=== PATIENT | male | born 1955 | race Caucasian/White ===

== ENCOUNTER 2016-08-15 13:26 | Inpatient (IN) | payer OTHER ==
--- NOTE | ~2016-08-15 | DS ---
Discharge Summary [facility] [address] [facility] [place]. [address] NAME: JOHN MOROCHO JR : 57 STATUS : DIS IN PAT#: [id number] AGE: 61 ADM/REG DATE : 08/15/16 MR#: [id number] REPORT SERV DATE: 08/18/16 DICTATED BY: SAMIR APARICIO DATE: 08/17/16 REPORT STATUS : Draft TRANSCRIBED BY: MODL DATE: 08/17/16 ADMISSION DATE: 08/15/2016 DISCHARGE DATE: 08/17/2016 REASON FOR ADMISSION: Partial small bowel obstruction. HPI: Please refer to my history and physical dated 08/15 for complete details regarding the patient's admission. The patient was admitted directly from [facility] for management and evaluation of an acute partial small bowel obstruction. HOSPITAL COURSE: The patient had an uncomplicated hospital course. The patient initially presented with some nausea, vomiting, abdominal pain to [facility]. They did a chest x-ray, which was concerning for dilated small loops of bowel for possible obstruction. The patient was accepted by myself as a direct admission. We did a CT scan of his abdomen and pelvis with contrast which showed status post colectomy with right lower quadrant ileostomy. There was evidence of a previous small-bowel surgery with a patent [id number] small bowel anastomosis in the right upper quadrant. There are mildly dilated small loops throughout the abdomen with mild narrowing of the caliber of the distal ilium just proximal to the ileostomy site. The patient does have a known stricture about 7 cm proximal to the stoma based on a colonoscopy in February [address] De Leon. The patient had an NG tube placed to low intermittent suction. He was feeling much better after the NG tube was placed. We started him on a clear liquid diet. He was tolerating it without any nausea or vomiting. His NG tube had been pulled on August 16, 2016. He has now been tolerating a regular diet without any nausea, vomiting, or abdominal pain. His ostomy is now producing the typical output. We did a KUB on the day of discharge, which showed possible dilated small bowel loops still present; however, the patient is feeling back to his baseline and is requesting to go home. PHYSICAL EXAMINATION: On physical exam, the patient has bowel sounds without any abdominal pain and his ostomy contains grits which is what he ate this morning. He feels back to his baseline and he is requesting to go home. He will be discharged home in a stable condition. DISCHARGE DIAGNOSES: 1. Partial small bowel obstruction, now likely resolved secondary to probable stricture. 2. Leukocytosis, now resolved. 3. Dehydration, now resolved. 4. Hypertension. 5. Hyperlipidemia. 6. History of Crohn's status post resection. PROCEDURES: Include CT scan of the abdomen and pelvis with IV and p.o. contrast. DISCHARGE MEDICATIONS: Include: 1. Atenolol 25 mg daily. 2. Tricor 48 mg at bedtime. Discharge Summary [place] [id number] [place]. [address] NAME: JOHN MOROCHO : 57 STATUS : DIS IN PAT#: [id number] AGE: 61 ADM/REG DATE : 08/15/16 MR#: [id number] REPORT SERV DATE: 08/18/16 DICTATED BY: SAMIR APARICIO DATE: 08/17/16 REPORT STATUS : Draft TRANSCRIBED BY: YANDEL DATE: 08/17/16 3. Niacin 500 mg at bedtime. 4. Prevacid 30 mg daily. 5. Vitamin B 1000 mcg every 30 days. 6. Fish oil 1000 mg three times a day. 7. Cinnamon bark. Patient will follow up with Dr. De Leon in a week. This is Dr. Samir Aparicio spending over 30 minutes discharge planning and coordination of care on Mr. Morocho. ELIDA/YANDEL Samir Aparicio MD / [id number] CC: MD Emili Leonard MD
--- NOTE | ~2016-08-15 | HP ---
History And Physical [place] [id number] [facility] [place]. [address] NAME: JOHN MOROCHO JR : 57 STATUS : ADM IN [facility]#: [id number] AGE: 61 ADM/REG DATE : 08/15/16 MR#: [id number] REPORT SERV DATE: 08/15/16 DICTATED BY: SAMIR APARICIO DATE: 08/15/16 REPORT STATUS : Draft TRANSCRIBED BY: MODL DATE: 08/15/16 DATE OF ADMISSION: 08/15/2016 REASON FOR ADMISSION: Direct admission from [facility] for concern for a partial small bowel obstruction. CHIEF COMPLAINT: "I was having some abdominal pain, nausea, and vomiting this morning." HISTORY OF PRESENT ILLNESS: 61-year-old, white male with a history of longstanding Crohn disease diagnosed at the age of 13 with a resultant colectomy and ileostomy at the age of 23, followed closely by Dr. De Leon with multiple surveillance scopes. The patient states that he was in his normal state of health up until last night where he started having some crampy abdominal pain in the epigastric area and resultant nausea and vomiting. Noted some very thick yellow output from his ostomy. He presented to [facility] where they did an x-ray of his abdomen which was concerning for a bowel obstruction and given that Dr. De Leon goes to [facility], the patient had requested to be transferred here for further evaluation. At [facility], he had placed an NG tube, done an x-ray and given him approximately 2 L of IV fluids. He is currently feeling better. Has not had any nausea or vomiting, but does have an NG tube placed. Since he has left the ER, he has noted some output from his ostomy which is new as he did not have any significant output since yesterday. He cannot recall all the details, but follows up very closely with Dr. De Leon. He states that he does have a known stricture and according to a colonoscopy report in 2015, he has a stricture in the ileum 7 cm proximal to the stoma. REVIEW OF SYSTEMS: No fever, but positive for chills. Nausea and vomiting now resolving. No chest pain. No shortness of breath. Review of systems is as per HPI. Otherwise, 10-point system were reviewed and are negative. PAST MEDICAL HISTORY: Hypertension, hyperlipidemia, reflux, Crohn disease with a history of ileostomy bleeding, Crohn enteritis. SURGICAL HISTORY: He had a total colectomy and with partial removal of his small bowel many years ago. SOCIAL HISTORY: He denies any tobacco, alcohol, IV drug use. He lives alone. 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 FAMILY HISTORY: Includes irritable bowel syndrome. ALLERGIES: NO KNOWN DRUG ALLERGIES. MEDICATIONS: Reviewed. PHYSICAL EXAMINATION: VITAL SIGNS: Blood pressure is 132/83, temperature is 97.4, pulse 92. History And Physical [address] [address] NAME: JOHN MOROCHO JR : 57 STATUS : ADM IN [facility]#: [id number] AGE: 61 ADM/REG DATE : 08/15/16 MR#: [id number] REPORT SERV DATE: 08/15/16 DICTATED BY: SAMIR APARICIO DATE: 08/15/16 REPORT STATUS : Draft TRANSCRIBED BY: YANDEL DATE: 08/15/16 GENERAL: The patient is a very pleasant, in no acute distress with current NG tube to gravity. HEENT: Normocephalic, atraumatic head. Extraocular muscles intact. Oropharynx clear. NECK: Supple. No JVD. CARDIAC: Regular rhythm. No murmurs, rubs, or gallops. PULMONARY: Clear to auscultation bilaterally. ABDOMEN: Soft, nondistended, very mild tenderness to palpation in the left lower quadrant. There is an ostomy with some output on the right side. There is a well-healed midline scar from previous surgery. NEUROLOGIC: No focal deficits. SKIN: Warm and dry. PSYCHIATRIC: The patient is cooperative. Mood is appropriate. LABS: From outside [place] [address], hemoglobin of 19, platelet count of 228. Creatinine 1.6. Glucose 217. Troponin is negative. IMPRESSION: 1. Partial small bowel obstruction. 2. Leukocytosis. 3. Polycythemia secondary to dehydration. 4. Crohn's, status post resection. 5. Hypertension. 6. Hyperlipidemia. PLAN: Continue with NG tube to lower intermittent suction. We will obtain a CT scan of his abdomen and pelvis with p.o. and IV contrast to evaluate small bowel obstruction versus strictures. Continue IV fluids. We will try to obtain records from Dr. De Leon' office and if surgical intervention is warranted, we will contact Dr. Lopez. ELIDA/YANDEL Samir Aparicio MD / [id number] CC: MD Virginia Leonard III, M.D.
[~2016-08-15 13:26] MED LIST: ACET500CAP PO; ALOE VERA500 MG OR; ALOE VERA500 MG PO; ATEN25 PO; B121000P IM; CALTRA600D PO; CINNAMIN PO; FISH-EPA1000 MG PO; HUMIRA PEN SC; MEGA MULTI OR; MERCAPTOPUR50 MG OR; MULTIVIT/MIN PO; MULTIVITAMI1 PO; NIACOR500 MG PO; P20 PO; PREV30 PO; TRICOR48 PO
[2016-08-15] MEDS ORDERED: TRICOR48 PO (16:20)
[2016-08-15] MEDS ORDERED: NIACIN 500 PO (16:20)
[2016-08-15] MEDS ORDERED: ATEN25 PO (16:20)
[2016-08-15] MEDS ORDERED: PREV30 PO (16:20)
[2016-08-15] MEDS ORDERED: CINNAMONPO PO (16:21)
[2016-08-15] MEDS ORDERED: B121000P IM (16:21)
[2016-08-15] MEDS ORDERED: FISH-EPA1000 MG PO (16:21)
[2016-08-15 17:26] LABS: BASOPHILS 0.1 %; BASOPHILS ABSOLUTE 0.01 10/3/uL (0.0-0.16); EOSINOPHILS 0.1 %; EOSINOPHILS ABSOLUTE 0.01 10/3/uL (0.0-0.53); IMMATURE GRANULOCYTES 0.2 %; IMMATURE GRANULOCYTES ABSOLUTE 0.02 10/3/uL (0.0-0.11); LYMPHOCYTES 5.6 %; LYMPHOCYTES ABSOLUTE 0.45 10/3/uL (0.67-4.30); MEAN CORPUS HGB CONC 36.5 g/dL (32.0-36.0); MEAN CORPUSCULAR HEMOGLOB 33.1 pg (26.0-34.0); MEAN CORPUSCULAR VOLUME 90.5 fL (80-100); MONOCYTES 10.7 %; MONOCYTES ABSOLUTE 0.86 10/3/uL (0.21-1.20); NEUTROPHILS 83.3 %; PLATELET COUNT 196 10/3/uL (150-400)
[2016-08-15 17:29] LABS: HEMATOCRIT 49.8 % (40.0-51.0); HEMOGLOBIN 18.2 g/dL (13.6-17.8); MANUAL DIFF NO %; WHITE BLOOD CELLS 8.1 10/3/uL (4.5-10.5)
[2016-08-15 17:36] LABS: PROTIME (NOT ORD) 13.4 SEC (12.0-14.5)
[2016-08-15 17:37] LABS: PARTIAL THROMBO TIME 30.2 SEC (22.5-37.2)
[2016-08-15 17:57] LABS: A/G RATIO 1.1 (0.7-1.9); ALBUMIN 3.5 G/DL (3.5-5.0); ALKALINE PHOSPHATASE 62 U/L (45-117); CALCIUM, SERUM 9.3 MG/DL (8.5-10.4); CHLORIDE, SERUM 109 MMOL/L (96-112); CO2 (CARBON DIOXIDE) 23 MMOL/L (24-34); CREATININE 1.13 MG/DL (0.70-1.30); GFR AFRICAN AMERICAN 81 ML/MIN (>=60); GFR NON AFRICAN AMERICAN 70 ML/MIN (>=60); GLOBULIN 3.2 G/DL (2.5-4.1); GLUCOSE, SERUM 134 MG/DL (60-99); PHOSPHORUS, SERUM 3.2 MG/DL (2.5-4.5); POTASSIUM, SERUM 3.8 MMOL/L (3.5-5.3); SGOT(AST) 20 U/L (5-40); SGPT(ALT) 25 U/L (5-65); SODIUM, SERUM 142 MMOL/L (135-148); TOTAL PROTEIN 6.7 G/DL (6.0-8.5)
[2016-08-15 17:58] LABS: BUN (BLOOD UREA NITROGEN) 19 MG/DL (6-23)
[2016-08-16 06:24] LABS: BASOPHILS 0.4 %; BASOPHILS ABSOLUTE 0.02 10/3/uL (0.0-0.16); EOSINOPHILS 0.7 %; EOSINOPHILS ABSOLUTE 0.04 10/3/uL (0.0-0.53); HEMATOCRIT 48.7 % (40.0-51.0); HEMOGLOBIN 16.9 g/dL (13.6-17.8); IMMATURE GRANULOCYTES 0.2 %; IMMATURE GRANULOCYTES ABSOLUTE 0.01 10/3/uL (0.0-0.11); LYMPHOCYTES 16.4 %; LYMPHOCYTES ABSOLUTE 0.92 10/3/uL (0.67-4.30); MEAN CORPUS HGB CONC 34.7 g/dL (32.0-36.0); MEAN CORPUSCULAR HEMOGLOB 32.3 pg (26.0-34.0); MEAN CORPUSCULAR VOLUME 92.9 fL (80-100); MEAN PLATELET VOLUME 10.3 fL (9.2-13.0); MONOCYTES 15.7 %; MONOCYTES ABSOLUTE 0.88 10/3/uL (0.21-1.20); NEUTROPHILS 66.6 %; NEUTROPHILS ABSOLUTE 3.73 10/3/uL (2.02-8.40); PLATELET COUNT 195 10/3/uL (150-400); RED CELL COUNT 5.24 10/6/uL (4.7-6.1); WHITE BLOOD CELLS 5.6 10/3/uL (4.5-10.5)
[2016-08-16 06:25] LABS: MANUAL DIFF NO %
[2016-08-16 06:32] LABS: BUN (BLOOD UREA NITROGEN) 21 MG/DL (6-23); CALCIUM, SERUM 9.1 MG/DL (8.5-10.4); CHLORIDE, SERUM 110 MMOL/L (96-112); CO2 (CARBON DIOXIDE) 25 MMOL/L (24-34); GFR AFRICAN AMERICAN 63 ML/MIN (>=60); GFR NON AFRICAN AMERICAN 54 ML/MIN (>=60); GLUCOSE, SERUM 122 MG/DL (60-99); PHOSPHORUS, SERUM 3.1 MG/DL (2.5-4.5); SODIUM, SERUM 143 MMOL/L (135-148)
[2016-08-17 05:11] LABS: BASOPHILS 0.3 %; BASOPHILS ABSOLUTE 0.02 10/3/uL (0.0-0.16); EOSINOPHILS 1.4 %; EOSINOPHILS ABSOLUTE 0.08 10/3/uL (0.0-0.53); IMMATURE GRANULOCYTES 0.2 %; IMMATURE GRANULOCYTES ABSOLUTE 0.01 10/3/uL (0.0-0.11); LYMPHOCYTES 19.8 %; LYMPHOCYTES ABSOLUTE 1.15 10/3/uL (0.67-4.30); MEAN CORPUS HGB CONC 34.5 g/dL (32.0-36.0); MEAN CORPUSCULAR HEMOGLOB 32.1 pg (26.0-34.0); MEAN CORPUSCULAR VOLUME 93.1 fL (80-100); MEAN PLATELET VOLUME 9.9 fL (9.2-13.0); MONOCYTES 16.4 %; MONOCYTES ABSOLUTE 0.95 10/3/uL (0.21-1.20); NEUTROPHILS 61.9 %; NEUTROPHILS ABSOLUTE 3.59 10/3/uL (2.02-8.40); PLATELET COUNT 146 10/3/uL (150-400); RBC DISTRIBUTION WIDTH 13.4 % (12.0-16.0); RED CELL COUNT 4.67 10/6/uL (4.7-6.1); WHITE BLOOD CELLS 5.8 10/3/uL (4.5-10.5)
[2016-08-17 05:12] LABS: HEMATOCRIT 43.5 % (40.0-51.0); MANUAL DIFF NO %
[2016-08-17 05:23] LABS: CALCIUM, SERUM 8.6 MG/DL (8.5-10.4); CHLORIDE, SERUM 112 MMOL/L (96-112); CO2 (CARBON DIOXIDE) 22 MMOL/L (24-34); CREATININE 1.07 MG/DL (0.70-1.30); GFR AFRICAN AMERICAN 87 ML/MIN (>=60); GFR NON AFRICAN AMERICAN 75 ML/MIN (>=60); GLUCOSE, SERUM 104 MG/DL (60-99); POTASSIUM, SERUM 3.7 MMOL/L (3.5-5.3); SODIUM, SERUM 144 MMOL/L (135-148)
[2016-08-17 05:25] LABS: BUN (BLOOD UREA NITROGEN) 17 MG/DL (6-23)
[2016-09-18] MEDS ORDERED: MULTIPLE VIT PO (12:59)
== END 2016-08-17 17:35 | disposition home or self-care (01) | DRG 389 ==
LOC: 5SO 13:26
PROVIDERS: Internal Medicine
DX: K56.69 Other intestinal obstruction (principal); K50.80 Crohn's disease of both small and large intestine without complications; I10 Essential (primary) hypertension; E78.5 Hyperlipidemia, unspecified; K21.9 Gastro-esophageal reflux disease without esophagitis; Z93.2 Ileostomy status; E86.0 Dehydration; Z88.0 Allergy status to penicillin
CPT/HCPCS: 74000; 74177; 80048; 80053; 83605; 83735; 84100; 85025; 85610; 85730; A9270-GY; G0378; Q9967

== ENCOUNTER 2016-10-06 22:31 | Inpatient (IN) | payer BC ==
--- NOTE | ~2016-10-06 | CN ---
Consultation Report [facility] [address] [place]. [address] NAME: JOHN MOROCHO JR : 57 STATUS : ADM IN [facility]#: [id number] AGE: 61 ADM/REG DATE : 10/06/16 MR#: [id number] REPORT SERV DATE: 10/09/16 DICTATED BY: RANGEL MOFFETT DATE: 10/09/16 REPORT STATUS : Draft TRANSCRIBED BY: MODL DATE: 10/09/16 ELECTROPHYSIOLOGY CONSULTATION DATE OF CONSULTATION: 10/09/2016 INDICATION: Complete AV block. HISTORY OF PRESENT ILLNESS: John Morocho is a 61-year-old man, who was transferred from [facility] with AV block and significant dizziness, this occurred on 10/06. The patient had been at work, felt lightheaded and dizzy while walking to the car, went to the emergency room, found to be significantly bradycardic with heart block, and was transferred for urgent temporary pacemaker placement, which was done by Dr. Gimenez on the evening of 10/06. The patient did not have meli syncope, but fairly dramatic presyncope. No complaints of chest pain. No orthopnea, PND, or lower extremity edema. PAST MEDICAL HISTORY: Crohn disease and hypertension. HOME MEDICATIONS: Fenofibrate, B12, atenolol. He has been off atenolol for 48 hours now. In spite OF that, still is pacer dependent with the temporary pacemaker. SOCIAL HISTORY: No alcohol and no tobacco. FAMILY HISTORY: Reviewed and noncontributory. REVIEW OF SYSTEMS: As per the HPI. Otherwise, all review of systems negative. ALLERGIES: REPORTED TO BE AMPICILLIN, WHICH CAUSES SORES IN THE PATIENT'S MOUTH. PHYSICAL EXAMINATION: VITAL SIGNS: With blood pressure of 124/64; pulse 50 with ventricular paced and complete AV block; temperature 98.1; the patient is afebrile. GENERAL: Appears stated age, no distress. EYES: Sclerae anicteric. No arcus senilis. MOUTH: Oral mucosa moist. Lips acyanotic. NECK: Jugular venous pressure normal. No carotid bruits. LUNGS: Clear anterior. Normal inspiratory effort. CARDIAC: Irregular rhythm, bradycardic. 2/6 systolic ejection murmur. ABDOMEN: Soft, nondistended, nontender. EXTREMITIES: No edema. SKIN: Warm and dry. NEURO/PSYCH: Alert and oriented. Nonfocal. Mood appropriate. DATA: Potassium 3.9, creatinine 1.2. No CBC available in the computer chart. No chest x- ray available in the computer chart. Consultation Report [place] [address] [place]. [address] NAME: JOHN MOROCHO JR : 57 STATUS : ADM IN PAT#: [id number] AGE: 61 ADM/REG DATE : 10/06/16 MR#: [id number] REPORT SERV DATE: 10/09/16 DICTATED BY: RANGEL MOFFETT DATE: 10/09/16 REPORT STATUS : Draft TRANSCRIBED BY: YANDEL DATE: 10/09/16 Electrocardiogram is complete AV block/VA dissociation. IMPRESSIONS: 1. Complete AV block, off atenolol greater than 48 hours, temporary pacemaker still in place and being used. 2. Systolic ejection murmur. 3. Hypertension. 4. Crohn disease. RECOMMENDATIONS: 1. Check echocardiogram, assess aortic valve and ejection fraction. 2. Obtain CBC. 3. Planned for permanent pacemaker today. I have discussed the patient the rationale, logistics, and risks. Risks include, but not limited to bleeding, infection, vascular complications, failure to place lead, lead dislodgement, pneumothorax, cardiac perforation, and vascular issues. All questions were answered, and the patient wished to proceed. LISSETTE/YANDEL Rangel Moffett M.D. / [id number] CC: Milli Do MD
--- NOTE | ~2016-10-06 | PRECARD ---
[facility] [address] [place] [place]. [address] NAME: JOHN MOROCHO JR : 57 STATUS : ADM IN [facility]#: [id number] AGE: 61 ADM/REG DATE : 10/06/16 MR#: [id number] REPORT SERV DATE: 10/07/16 DICTATED BY: KYLIE GIMENEZ DATE: 10/06/16 REPORT STATUS : Draft TRANSCRIBED BY: YANDEL DATE: 10/06/16 DATE OF ADMISSION: 10/06/2016 HISTORY OF PRESENT ILLNESS: Mr. John Morocho junior is a 61-year-old gentleman, transferred from [facility] for emergency pacemaker for treatment of complete heart block. Mr. Morocho has a history of Crohn disease and hypertension. He has been treated with atenolol for several years. Today, while at work, he developed some lightheaded and dizziness while walking to his car. He reported to [facility] Room. The emergency room physician told me that the patient had complete heart block with bradycardia. He was transferred for emergency pacemaker. Doctor reported his systolic blood pressure was about 160 upon presentation and through his emergency room visit. Mr. Morocho did not lose consciousness. He felt lightheaded and dizzy while walking to his car. He has not had these symptoms previously. He has had no chest discomfort. No palpitations. He has had no presyncope or syncope other than today. PAST MEDICAL HISTORY: Crohn disease and hypertension. MEDICATIONS: Fenofibrate, B12, and atenolol, dose is uncertain. SOCIAL HISTORY: No alcohol or tobacco. 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 FAMILY HISTORY: Noncontributory, no family history of cardiac arrhythmias as far as he knows. REVIEW OF SYSTEMS: Complete review of systems was obtained, pertinent negative and unremarkable except as noted above and below. All systems addressed. PHYSICAL EXAMINATION: VITAL SIGNS: Blood pressure about 160/60, heart rate about 45. GENERAL: Comfortable, in no acute distress. HEENT: No xanthelasma; lips without cyanosis LUNGS: Clear to auscultation, no wheezes, rales or rhonchi; good breath sounds. COR: No JVD or hepatojugular reflux, no murmurs, rubs or gallops, impulse mid clavicular line without carotid or abdominal bruits; normal S1 and S2. ABDOMEN: Bowel sounds positive, normal activity, without tenderness, masses or hepatosplenomegaly. EXTREMITIES: No edema, cyanosis. SKIN: Normal turgor. Ms: Normal muscle strength, without kyphosis/scoliosis. [facility] [address] [facility] [place]. [address] NAME: JOHN MOROCHO JR : 57 STATUS : ADM IN [facility]#: [id number] AGE: 61 ADM/REG DATE : 10/06/16 MR#: [id number] REPORT SERV DATE: 10/07/16 DICTATED BY: KYLIE GIMENEZ DATE: 10/06/16 REPORT STATUS : Draft TRANSCRIBED BY: YANDEL DATE: 10/06/16 NEURO/PSYCH: Alert and oriented times 4, no apparent anxiety or depression. DIAGNOSTIC DATA: 1. Telemetry demonstrates a sinus rhythm with 2:1 AV block with a probable junctional escape. 2. EKG prior to transfer demonstrates sinus rhythm about 100 with 2:1 AV block, probable junctional escape. 3. Hematocrit 43.8, white count 8.4, platelet count 206,000. Sodium 137, potassium 3.8, BUN 9, creatinine 1.2. ASSESSMENT: Mr. Morocho is a very nice 61-year-old gentleman who has hypertension, treated with atenolol, dose uncertain, who presented with an episode of dizziness, presents with atrioventricular block, 2:1 conduction. We will plan to proceed with temporary pacemaker because I was told he had complete heart block, although telemetry and rhythm strips were not sent. I discussed the risks, benefits, and alternatives of pacemaker insertion, he understands and requests to proceed. VICKIE/YANDEL Kylie Gimenez M.D. / [id number] CC: Kylie Gimenez M.D.
--- NOTE | ~2016-10-06 | DS ---
Discharge Summary [facility] [address] [place]. [address] NAME: JOHN MOROCHO JR : 57 STATUS : DIS IN PAT#: [id number] AGE: 61 ADM/REG DATE : 10/06/16 MR#: [id number] REPORT SERV DATE: 10/25/16 DICTATED BY: KYLIE GIMENEZ DATE: 10/24/16 REPORT STATUS : Draft TRANSCRIBED BY: YANDEL DATE: 10/24/16 Data Collection from hospitalization DISCHARGE DIAGNOSES: 1. Symptomatic complete heart block, status post pacemaker placement. 2. Systolic ejection murmur. 3. Hypertension. 4. Crohn's disease. CONSULTATIONS: Rangel Moffett M.D. PROCEDURES PERFORMED: 1. Placement of temporary pacemaker on 10/06/2016. 2. Pacemaker implantation on 10/09/2016. 3. Cardiac catheterization on 10/10/2016. MEDICATIONS: Tenormin 25 mg daily, Coreg 6.25 mg twice a day, cinnamon 1000 mg daily, vitamin B12 1000 mcg IM monthly, TriCor 48 mg at bedtime, ferrous sulfate 325 mg daily, Prevacid 30 mg daily, Prinivil 10 mg daily, Niacor 500 mg at bedtime, and fish oil 1000 mg twice a day. CONDITION AT DISCHARGE: Stable. DISPOSITION: The patient was discharged home on a low-sodium, low-cholesterol, cardiac diet with activities as instructed. He would follow up with me on 11/13/2016. He would have lab draws at the [facility] on 10/11/2016. He would follow up in the [facility] on 11/06/2016. HOSPITAL COURSE: This is a 61-year-old man who was transferred from [facility] for emergency pacemaker for treatment of complete heart block. The patient has a history of Crohn's disease and hypertension. He had been treated with atenolol for several years. On the day of this admission, while at work, he developed some lightheadedness and dizziness while walking to his car. The patient had reported to [facility]. The emergency room physician said that the patient had complete heart block with bradycardia. He was transferred for emergency pacemaker. The physician reported that his systolic blood pressure was about 160 at the time of presentation during his emergency room visit. He did not lose consciousness. He felt lightheaded and dizzy while walking to his car. He has not had these symptoms previously. He had had no chest discomfort or palpitations, presyncope, or syncope other than on the day of this admission. He was admitted to the hospital at this time for further evaluation and treatment. Upon admission, telemetry demonstrated sinus rhythm with 2:1 AV block with probable junctional escape. EKG prior to transfer demonstrated sinus rhythm at about 100 with 2:1 AV block probable junctional escape. Creatinine level was 1.2. His hypertension is treated with atenolol. It was felt that we would need to proceed with temporary pacemaker because of the complete heart block, although telemetry and rhythm strips were not sent. The patient agreed to proceed. The patient underwent successful placement of temporary pacemaker. The following day, he felt well. He had no chest pain or shortness of breath. Discharge Summary [address] [address] NAME: JOHN MOROCHO JR : 57 STATUS : DIS IN PAT#: [id number] AGE: 61 ADM/REG DATE : 10/06/16 MR#: [id number] REPORT SERV DATE: 10/25/16 DICTATED BY: KYLIE GIMENEZ DATE: 10/24/16 REPORT STATUS : Draft TRANSCRIBED BY: YANDEL DATE: 10/24/16 His lungs were clear. Over the next couple of days, he felt well. He had no chest pain or shortness of breath. It was felt that he may need to undergo permanent pacemaker placement. Atenolol had been held. On 10/09/2016, he said he felt well. The pacer site was clean without bleeding. The patient was seen by Dr. Rangel Moffett. The electrocardiogram revealed AV block/VA dissociation. Echocardiogram was going to be checked to assess aortic valve and ejection fraction. CBC was going to be obtained. Plans were made for the patient to undergo permanent pacemaker. The patient underwent successful permanent pacemaker placement by Dr. Rangel Moffett. He tolerated this well, and there were no complications. The temporary pacemaker had been removed. On 10/10/2016, device check had been performed. Device function and measurements were within normal limits. It was felt that the patient should undergo cardiac catheterization and possible percutaneous coronary intervention to look for ischemic etiology of LV dysfunction. The patient was taken to the cardiac director of cath lab where he underwent the above-mentioned procedure by Dr. Rustam David. He tolerated this well, and there were no complications. He had two vessel coronary artery disease with 50% distal LAD and 50% PDA stenoses. There was normal left ventricular systolic function with left ventricular ejection fraction of 0.55. There was no significant mitral regurgitation. Discharge instructions were given. Due to his improved and stable condition, he was discharged home with the above-stated instructions. Information collected by: Dee Betancur I submit the above information as my discharge summary. BK/YANDEL Kylie Gimenez M.D. / [id number] CC: Milli Do MD Gregory Keith Bruce, M.D.
[~2016-10-06 22:31] MED LIST changes: +CINNAMONPO PO; +MULTIPLE VIT PO; +NIACIN 500 PO
[2016-10-07 04:42] LABS: CALCIUM, SERUM 8.8 MG/DL (8.5-10.4); CHLORIDE, SERUM 107 MMOL/L (96-112); CO2 (CARBON DIOXIDE) 25 MMOL/L (24-34); CREATININE 1.04 MG/DL (0.70-1.30); GFR AFRICAN AMERICAN 90 ML/MIN (>=60); GFR NON AFRICAN AMERICAN 78 ML/MIN (>=60); GLUCOSE, SERUM 96 MG/DL (60-99); POTASSIUM, SERUM 3.5 MMOL/L (3.5-5.3); SODIUM, SERUM 141 MMOL/L (135-148)
[2016-10-07 04:43] LABS: BUN (BLOOD UREA NITROGEN) 7 MG/DL (6-23)
[2016-10-07] MEDS ORDERED: ATEN25 PO (12:35)
[2016-10-07] MEDS ORDERED: NIACOR500 MG PO (12:35)
[2016-10-07] MEDS ORDERED: PREV30 PO (12:35)
[2016-10-07] MEDS ORDERED: TRICOR48 PO (12:35)
[2016-10-07] MEDS ORDERED: B121000P IM (12:36)
[2016-10-07] MEDS ORDERED: FISH-EPA1000 MG PO (12:36)
[2016-10-07] MEDS ORDERED: CINNAMONPO PO (12:36)
[2016-10-07] MEDS ORDERED: FERROUS SULF325 M1 PO (12:36)
[2016-10-08 05:26] LABS: CALCIUM, SERUM 9.1 MG/DL (8.5-10.4); CHLORIDE, SERUM 105 MMOL/L (96-112); CO2 (CARBON DIOXIDE) 23 MMOL/L (24-34); CREATININE 1.03 MG/DL (0.70-1.30); GFR AFRICAN AMERICAN 91 ML/MIN (>=60); GFR NON AFRICAN AMERICAN 79 ML/MIN (>=60); GLUCOSE, SERUM 108 MG/DL (60-99); POTASSIUM, SERUM 3.9 MMOL/L (3.5-5.3); SODIUM, SERUM 138 MMOL/L (135-148)
[2016-10-08 05:27] LABS: BUN (BLOOD UREA NITROGEN) 11 MG/DL (6-23)
[2016-10-09 04:48] LABS: BUN (BLOOD UREA NITROGEN) 12 MG/DL (6-23); CALCIUM, SERUM 9.3 MG/DL (8.5-10.4); CHLORIDE, SERUM 102 MMOL/L (96-112); CO2 (CARBON DIOXIDE) 24 MMOL/L (24-34); CREATININE 1.21 MG/DL (0.70-1.30); GFR AFRICAN AMERICAN 75 ML/MIN (>=60); GFR NON AFRICAN AMERICAN 65 ML/MIN (>=60); GLUCOSE, SERUM 111 MG/DL (60-99); POTASSIUM, SERUM 3.9 MMOL/L (3.5-5.3); SODIUM, SERUM 136 MMOL/L (135-148)
[2016-10-09 10:15] LABS: BASOPHILS 0.2 %; BASOPHILS ABSOLUTE 0.02 10/3/uL (0.0-0.16); EOSINOPHILS 0.7 %; EOSINOPHILS ABSOLUTE 0.07 10/3/uL (0.0-0.53); HEMATOCRIT 45.7 % (40.0-51.0); HEMOGLOBIN 16.1 g/dL (13.6-17.8); IMMATURE GRANULOCYTES 0.2 %; IMMATURE GRANULOCYTES ABSOLUTE 0.02 10/3/uL (0.0-0.11); LYMPHOCYTES 17.2 %; LYMPHOCYTES ABSOLUTE 1.79 10/3/uL (0.67-4.30); MEAN CORPUS HGB CONC 35.2 g/dL (32.0-36.0); MEAN CORPUSCULAR HEMOGLOB 32.3 pg (26.0-34.0); MEAN CORPUSCULAR VOLUME 91.6 fL (80-100); MEAN PLATELET VOLUME 10.3 fL (9.2-13.0); MONOCYTES 6.8 %; MONOCYTES ABSOLUTE 0.71 10/3/uL (0.21-1.20); NEUTROPHILS 74.9 %; PLATELET COUNT 138 10/3/uL (150-400); RBC DISTRIBUTION WIDTH 13.4 % (12.0-16.0); RED CELL COUNT 4.99 10/6/uL (4.7-6.1)
[2016-10-09 10:16] LABS: MANUAL DIFF NO %; WHITE BLOOD CELLS 10.4 10/3/uL (4.5-10.5)
[2016-10-10 04:46] LABS: CALCIUM, SERUM 8.7 MG/DL (8.5-10.4); CHLORIDE, SERUM 102 MMOL/L (96-112); CO2 (CARBON DIOXIDE) 28 MMOL/L (24-34); CREATININE 1.35 MG/DL (0.70-1.30); GFR AFRICAN AMERICAN 66 ML/MIN (>=60); GFR NON AFRICAN AMERICAN 57 ML/MIN (>=60); GLUCOSE, SERUM 120 MG/DL (60-99); POTASSIUM, SERUM 4.2 MMOL/L (3.5-5.3); SODIUM, SERUM 138 MMOL/L (135-148)
[2016-10-10 04:47] LABS: BUN (BLOOD UREA NITROGEN) 17 MG/DL (6-23)
[2016-10-10 11:31] LABS: BASOPHILS 0.1 %; BASOPHILS ABSOLUTE 0.01 10/3/uL (0.0-0.16); EOSINOPHILS 0.3 %; EOSINOPHILS ABSOLUTE 0.03 10/3/uL (0.0-0.53); HEMATOCRIT 45.5 % (40.0-51.0); IMMATURE GRANULOCYTES 0.3 %; IMMATURE GRANULOCYTES ABSOLUTE 0.03 10/3/uL (0.0-0.11); LYMPHOCYTES 7.7 %; LYMPHOCYTES ABSOLUTE 0.86 10/3/uL (0.67-4.30); MEAN CORPUS HGB CONC 35.2 g/dL (32.0-36.0); MEAN CORPUSCULAR HEMOGLOB 32.7 pg (26.0-34.0); MEAN CORPUSCULAR VOLUME 92.9 fL (80-100); MEAN PLATELET VOLUME 10.7 fL (9.2-13.0); MONOCYTES 9.4 %; MONOCYTES ABSOLUTE 1.04 10/3/uL (0.21-1.20); NEUTROPHILS 82.2 %; NEUTROPHILS ABSOLUTE 9.13 10/3/uL (2.02-8.40); PLATELET COUNT 112 10/3/uL (150-400); RBC DISTRIBUTION WIDTH 13.1 % (12.0-16.0); WHITE BLOOD CELLS 11.1 10/3/uL (4.5-10.5)
[2016-10-10 11:33] LABS: MANUAL DIFF NO %
[2016-10-10] MEDS ORDERED: COREG6 PO (20:58)
[2016-10-10] MEDS ORDERED: PRIN10 PO (21:00)
== END 2016-10-10 22:25 | disposition home or self-care (01) | DRG 243 ==
LOC: CCU 22:31 → SSU1 10-10 18:35
PROVIDERS: Internal Medicine Cardiovascular Disease
PROC: 5A1223Z Performance of Cardiac Pacing, Continuous (ICD-10-PCS; principal; 2016-10-06)
PROC: 0JH606Z Insertion of Pacemaker, Dual Chamber into Chest Subcutaneous Tissue and Fascia, Open Approach (ICD-10-PCS; 2016-10-09)
PROC: 02HK3JZ Insertion of Pacemaker Lead into Right Ventricle, Percutaneous Approach (ICD-10-PCS; 2016-10-09)
PROC: 02HL3JZ Insertion of Pacemaker Lead into Left Ventricle, Percutaneous Approach (ICD-10-PCS; 2016-10-09)
PROC: 4A023N7 Measurement of Cardiac Sampling and Pressure, Left Heart, Percutaneous Approach (ICD-10-PCS; 2016-10-10)
PROC: B2111ZZ Fluoroscopy of Multiple Coronary Arteries using Low Osmolar Contrast (ICD-10-PCS; 2016-10-10)
PROC: B2141ZZ Fluoroscopy of Right Heart using Low Osmolar Contrast (ICD-10-PCS; 2016-10-10)
DX: I44.2 Atrioventricular block, complete (principal); K50.90 Crohn's disease, unspecified, without complications; I10 Essential (primary) hypertension; R01.1 Cardiac murmur, unspecified; I25.10 Atherosclerotic heart disease of native coronary artery without angina pectoris; E66.9 Obesity, unspecified; E78.00 Pure hypercholesterolemia, unspecified; Z82.49 Family history of ischemic heart disease and other diseases of the circulatory system
CPT/HCPCS: 33208; 33210; 33225; 71010; 80048; 85025; 87641; 93005; 93458; 99152; A9270-GY; C1769; C1887; C1892; C1894; C1898; C1900; C2621; C8929; J0690; J2250; J3010; Q9957; Q9967